=== PATIENT | female | born 1935 | race Caucasian/White ===

== ENCOUNTER → 2023-10-05 | Outpatient (CLI) | payer MEDICARE, OTHER, SELFPAY ==
--- OUTSIDE RECORDS SUMMARY | 2023-10-05 09:10 | XMS RPT_ITS | CCD ---
Author Name Unknown Address [address] [place] [address] Organization [facility] Care Team Providers Care Elevator Erector Helper Name Role Phone CHEMA CHRISTIANO Unavailable Unavailable CHEMA CHRISTIANO Unavailable Unavailable TALAMPAS, CHARLENE D Unavailable Unavailable THORPE, JONATHAN (PUBLIC RELATIONS ASSISTANT) Unavailable Unavailable TALAMPAS, CHARLENE D Unavailable Unavailable THORPE, JONATHAN (PUBLIC RELATIONS ASSISTANT) Unavailable Unavailable THORPE, JONATHAN (PUBLIC RELATIONS ASSISTANT) Unavailable Unavailable ÁLVAREZ, HUEY (LIGHT INDUSTRIAL SUPERVISOR) Unavailable Unavailable CHEMA, CHRISTIANO Unavailable Unavailable ÁLVAREZ, HUEY (LIGHT INDUSTRIAL SUPERVISOR) Unavailable Unavailable LORENZO MARIEA PATRICIA Unavailable Unavailable ÁLVAREZNAVNEETI (LIGHT INDUSTRIAL SUPERVISOR) Unavailable Unavailable MARIE, RADAH PATRICIA Unavailable Unavailable MARIE, RADHA PATRICIA Unavailable Unavailable MARIE, RADHA PATRICIA Unavailable Unavailable MARI MOYA B Unavailable Unavailable MARI MOYA Unavailable Unavailable Allergies Allergy Classification Reported Allergen(s) Allergy Type Date of Onset Reaction(s) Facility (2 sources) Angiotensin Converting Enzyme (Jourdan) Inhibitors; Translations: [JOURDAN INHIBITORS] Propensity to adverse reactions to drug (disorder) 6 [facility] Repository (2 sources) atorvastatin; Translations: [ATORVASTATIN CALCIUM] Drug Allergy 7 [facility] Repository Problems Active Problems Problem Classification Problem Date Documented Da te Episodic/Chronic Essential hypertension (1 source) Essential (primary) hypertension; Translations: [Essential (primary) hypertension] Onset: 05-24-2017 Chronic Unclassified (1 source) Unknown / UNK(Unknown) Onset: 05-25-2017 Past or Other Problems Problem Classification Problem Date Documented Da te Episodic/Chronic Fluid and electrolyte disorders (1 source) Hypokalemia; Translations: [Hypokalemia] Onset: 05-24-2017 Episodic Other aftercare (1 source) Other penitentiary (current) drug therapy; Translations: [Other penitentiary (current) drug therapy] Onset: 05-24-2017 Episodic Other gastrointestinal disorders (2 sources) Change in bowel habit; Translations: [Diarrhea, unspecified] Onset: 05-16-2017 Episodic Other non-traumatic joint disorders (1 source) Pain in left hip; Translations: [Pain in left hip] Onset: 12-15-2017 Episodic Results Test Name Value Interpretation Reference Range Facil ity Encounters Encounter Date Encounter Type Care Provider Facility Start: 12-15-2017 End: 01-03-2018 Ambulatory MARI Montes SAMANTHAMatt [facility] Start: 06-28-2017 End: 06-28-2017 Ambulatory RADHA GOMEZ MARIE [facility] Start: 06-15-2017 End: 06-15-2017 Ambulatory RADHA GOMEZ CYNTHIA [facility] Start: 06-09-2017 End: 06-12-2017 Ambulatory HUEY (LIGHT INDUSTRIAL SUPERVISOR) HENRI [facility] Start: 05-31-2017 Ambulatory JONATHAN (PUBLIC RELATIONS ASSISTANT) [facility] Start: 05-25-2017 End: 05-26-2017 Ambulatory JONATHAN (PUBLIC RELATIONS ASSISTANT) SHARPLESYONI [facility] Start: 05-24-2017 End: 05-24-2017 Ambulatory CHARLENE Ramona BELTRANMINERVA [facility] Start: 05-16-2017 End: 05-16-2017 Ambulatory PAT BEAR [facility] Start: 05-16-2017 End: 05-16-2017 Ambulatory PAT BEAR [facility] Summary Purpose Family History No Family History Records FoundNo Family History Records Found Advance Directives No Advanced Directives Records FoundNo Advanced Directives Records Found Additional Source Comments INFORMATION SOURCE (unrecogn ized section and content) DATE CREATED AUTHOR AUTHOR'S ORGANIZ ATION 03/29/2018 [facility] FOR RECORDS PERTAINING TO PATIENTS WHO ARE OR HAVE BEEN ENROLLED IN A CHEMICAL DEPENDENCY/SUBSTANCEABUSE PROGRAM, SOME INFORMATION MAY BE OMITTED. This clinical summary was aggregated from multiple sources. Caution should be exercised in using it in the provision of clinical care. This summary normalizes information from multiple sources, and as a consequence, information in this document may materially change the coding, format and clinical context of patient data. In addition, data may be omitted in some cases. CLINICAL DECISIONS SHOULD BE BASED ON THE PRIMARY CLINICAL RECORDS. [facility] provides no warranty or guarantee of the accuracy or completeness of information in this document.
[2023-10-05 10:16] LABS: Basophil# 0.07 X10^3/uL; Basophil% 1.2 % (0-1); Eosinophil# 0.14 X10^3/uL; Eosinophils% 2.5 % (0-5); Hematocrit 37.8 % (37-47); Hemoglobin 12.2 g/dL (12.0-15.0); Lymphocyte % 33.5 % (19-41); Mean Corp Hgb Conc 32.3 g/dL (32-36); Mean Corpuscular Hgb 30.3 pg (27.0-32.0); Mean Corpuscular Volume 93.8 fL (81-99); Mean Platelet Vol. 11.2 fl (6.2-12.0); Monocyte# 0.59 X10^3/uL; Monocyte% 10.4 % (0-10); NRBC Flagged by Analyzer 0 % (0-5); Neutrophil # 2.96 X10^3/uL (2.7-7.7); Platelet Count 303 K/mm3 (150-450); RBC Distribution Width CV 13.3 % (11.6-14.6); RBC Distribution Width SD 46.5 fl (35.1-43.9); Red Blood Count 4.03 M/mm3 (4.2-5.4); White Blood Count 5.7 K/mm3 (4.4-11.0)
[2023-10-05 11:01] LABS: Vitamin B12 518 pg/mL (211-911)
[2023-10-05 11:40] LABS: AST(SGOT) 19 U/L (15-37); Alanine Aminotransfer ALT/SGPT 16 U/L (13-56); Albumin, Serum 3.9 g/dL (3.2-5.0); Alkaline Phosphatase 81 U/L (45-117); Anion Gap 7 (5-15); BUN 10 mg/dL (7-18); Calcium,Total 9.4 mg/dL (8.5-10.1); Chloride 104 mmol/L (98-107); Cholesterol 184 mg/dL (200); Creatinine, Serum 0.67 mg/dL (0.55-1.02); EST Glomerular Filtration Rate 88 mL/min (>60); Est Glom Filt Rate - Afr Amer 107 mL/min (>60); Ferritin 80 ng/mL (8-252); Globulin 3.8 g/dL (2.2-4.2); Glucose 80 mg/dL (74-106); High Density Lipoprotein 93 mg/dL; Iron 93 ug/dL (50-170); Iron Binding Capacity,Total 352 ug/dL (250-450); Potassium 3.7 mmol/L (3.5-5.1); Protein, Total 7.7 g/dL (6.4-8.2); Sodium Level 138 mmol/L (136-145); Thyroid Stim Hormone (TSH) 4.05 uIU/mL (0.358-3.74); Triglycerides 98 mg/dL; Very Low Density Lipoprotein 20 mg/dL (5-40)
[2023-10-10 12:43] LABS: T4 Free Direct 0.88 ng/dL (0.76-1.46)
[2023-10-11 08:09] LABS: Thyroid Peroxidase AB < 9 IU/mL (0-34)
== END | disposition home or self-care (01) ==
LOC: MFPLAB 08:41
PROVIDERS: PCP Family Medicine; Visit Provider Family Medicine
DX: D64.9 Anemia, unspecified (principal); I10 Essential (primary) hypertension; E55.9 Vitamin D deficiency, unspecified
CPT/HCPCS: 36415; 80053; 80061; 82306; 82607; 82728; 82746; 83540; 83550; 83735; 84439; 84443; 85025; 86376